=== PATIENT | male | born 1940 | race Caucasian/White ===

== ENCOUNTER → 2017-01-31 | Outpatient (CLI) | payer MEDICARE, OTHER | END | disposition home or self-care (01) | LOC: CFH 12:53 | PROVIDERS: ATTEND Psychiatry & Neurology Neurology | DX: H05.243 Constant exophthalmos, bilateral (principal); M62.89 Other specified disorders of muscle | CPT/HCPCS: 70480 ==

== ENCOUNTER 2017-12-07 06:35 | Inpatient (IN) | payer MEDICARE ==
[~2017-12-07] VITALS: Ht 182.9 cm; Wt 67.7 kg
[2017-12-07] MEDS ORDERED: DILTIAZEM 5 MG/ML, 5ML IV ONE (07:00)
[2017-12-07] MEDS ORDERED: DILTIAZEM 5 MG/ML, 5ML ONE (07:12)
[2017-12-07 07:17] LABS: BASOPHILS # (AUTO) 0.02 x10^3/uL (0-0.1); BASOPHILS % (AUTO) 0 % (0-1); EOSINOPHILS % (AUTO) 0 % (1-7); LYMPHOCYTES # (AUTO) 0.37 x10^3/uL (1-3.4); LYMPHOCYTES % (AUTO) 6 % (22-44); MD NO; MEAN CORPUSCULAR HGB CONC 33.3 g/dL (33.2-36.2); MEAN CORPUSCULAR VOLUME 98.9 fL (81-97); MEAN PLATELET VOLUME 9.6 fL (7.4-10.4); MONOCYTES # (AUTO) 0.19 x10^3/uL (0.2-0.8); MONOCYTES % (AUTO) 3 % (2-9); NEUTROPHILS # (AUTO) 5.37 x10^3/uL (1.8-6.8); NEUTROPHILS % (AUTO) 90 % (42-75); PLATELET COUNT 176 x10^3/uL (130-400); RED BLOOD COUNT 4.77 x10^6/uL (4.38-5.82); RED CELL DISTRIBUTION WIDTH 15.4 % (9.4-14.8)
[2017-12-07 07:29] LABS: ALBUMIN 3.6 g/dL (3.4-5.0); ANION GAP 12 mmol/L (5-15); CALCIUM 9.1 mg/dL (8.5-10.1); CHLORIDE 105 mmol/L (98-107)
[2017-12-07] MEDS ORDERED: CYAN50008 PO (07:29)
[2017-12-07] MEDS ORDERED: NIAC1000 PO (07:29)
[2017-12-07] MEDS ORDERED: PIOG30TA3 PO (07:29)
[2017-12-07] MEDS ORDERED: METO25TA35 PO (07:29)
[2017-12-07] MEDS ORDERED: DOXY40CP PO (07:29)
[2017-12-07] MEDS ORDERED: CHOL200074 PO (07:29)
[2017-12-07] MEDS ORDERED: RISE150T3 PO (07:29)
[2017-12-07] MEDS ORDERED: OMEG-14 PO (07:29)
[2017-12-07] MEDS ORDERED: ROSU10TA PO (07:29)
[2017-12-07] MEDS ORDERED: RIVA20TA PO (07:29)
[2017-12-07] MEDS ORDERED: DILTIAZEM 125 MG in DEXTROSE 5% 100 ML IV SCH (07:31)
[2017-12-07] MEDS ORDERED: FUROSEMIDE 40 MG/4 ML IV ONE (08:00)
[2017-12-07] MEDS ORDERED: FUROSEMIDE 40 MG/4 ML ONE (08:12)
[2017-12-07 08:27] LABS: INTERNATIONAL NORMALIZED RATIO 1.64 (0.93-1.1); PROTHROMBIN TIME 16.7 Seconds (9.6-11.5)
[2017-12-07] MEDS ORDERED: TRAM50TA2 PO (09:00)
[2017-12-07] MEDS ORDERED: POLYETHYLENE GLYCOL 17 GM PACKET PO PRN (10:30)
[2017-12-07] MEDS ORDERED: ACETAMINOPHEN 325 MG TABLET PO PRN (10:30)
[2017-12-07] MEDS ORDERED: POTASSIUM CHLORIDE 20 MEQ TAB.ER.PRT PO ONE (10:30)
[2017-12-07] MEDS: METOPROLOL TARTRATE 25 MG TABLET PO SCH ×3 (10:30→22:02)
[2017-12-07] MEDS ORDERED: ONDANSETRON 2MG/ML, 2ML IVPush PRN (10:30)
[2017-12-07] MEDS ORDERED: DEXTROSE 4 GM TAB.CHEW PO PRN (11:00)
[2017-12-07] MEDS ORDERED: GLUCAGON 1 MG IM PRN (11:00)
[2017-12-07] MEDS ORDERED: DEXTROSE 50%, 50ML SYRINGE IVPush PRN (11:00)
[2017-12-07 11:10] LABS: TROPONIN I 0.102 ng/mL (0.000-0.045)
[2017-12-07 12:47] VITALS: BP 108/72
[2017-12-07] MEDS ORDERED: DILTIAZEM 125 MG in SODIUM CHLORIDE 0.9% 100 ML IV PRN (15:00)
[2017-12-07 17:08] LABS: TROPONIN I 0.096 ng/mL (0.000-0.045)
[2017-12-07] MEDS: FUROSEMIDE 40 MG/4 ML IV SCH (17:30)
[2017-12-07] MEDS ORDERED: DILTIAZEM 30 MG TABLET ONE (17:53)
[2017-12-07] MEDS: DILTIAZEM 30 MG TABLET PO SCH (17:55)
[2017-12-07 19:25] VITALS: BP_SYST 88; BP_SYST 92; BP_DIAS 45; BP_DIAS 53; BP_DIAS 83
[2017-12-07] MEDS: SODIUM CHLORIDE FLUSH 10ML SYR IVF SCH ×2 (21:00→22:03)
[2017-12-07] MEDS ORDERED: ATORVASTATIN 20 MG TABLET PO SCH (21:00)
[2017-12-07 21:56] VITALS: BP 93/55
[2017-12-08 00:11] VITALS: BP 113/70
[2017-12-08] MEDS: DILTIAZEM 30 MG TABLET PO SCH ×3 (00:13→12:24)
[2017-12-08 04:55] VITALS: BP 109/52
[2017-12-08] MEDS: METOPROLOL TARTRATE 25 MG TABLET PO SCH ×2 (04:57→11:04)
[2017-12-08 06:05] LABS: ANION GAP 11 mmol/L (5-15); CHLORIDE 107 mmol/L (98-107)
[2017-12-08 06:07] LABS: BASOPHILS # (AUTO) 0.02 x10^3/uL (0-0.1); BASOPHILS % (AUTO) 0 % (0-1); EOSINOPHILS # (AUTO) 0.01 x10^3/uL (0-0.4); EOSINOPHILS % (AUTO) 0 % (1-7); LYMPHOCYTES # (AUTO) 0.62 x10^3/uL (1-3.4); LYMPHOCYTES % (AUTO) 11 % (22-44); MD NO; MEAN CORPUSCULAR HEMOGLOBIN 32.8 pg (27.5-34.5); MEAN CORPUSCULAR HGB CONC 33.2 g/dL (33.2-36.2); MEAN CORPUSCULAR VOLUME 98.7 fL (81-97); MEAN PLATELET VOLUME 8.8 fL (7.4-10.4); MONOCYTES # (AUTO) 0.55 x10^3/uL (0.2-0.8); MONOCYTES % (AUTO) 10 % (2-9); NEUTROPHILS # (AUTO) 4.48 x10^3/uL (1.8-6.8); NEUTROPHILS % (AUTO) 79 % (42-75); PLATELET COUNT 154 x10^3/uL (130-400); RED BLOOD COUNT 3.82 x10^6/uL (4.38-5.82); RED CELL DISTRIBUTION WIDTH 15.5 % (9.4-14.8)
[2017-12-08 06:10] VITALS: BP 106/72
[2017-12-08 06:12] LABS: ALANINE AMINOTRANSFERASE 69 U/L (12-78); ALKALINE PHOSPHATASE 99 U/L (45-117); BILIRUBIN,TOTAL 1.6 mg/dL (0.2-1.0); CALCIUM 8.9 mg/dL (8.5-10.1); CHOL/HDL RATIO 1.7; CHOLESTEROL, TOTAL 90 mg/dL (140-239); CREATININE 1.02 mg/dL (0.7-1.3); HDL CHOL % 58 % (26-37); HDL CHOLESTEROL (DIRECT) 52 mg/dL (40-60); LDL CHOLESTEROL,CALCULATED 20 mg/dL (54-169); LDL/HDL RATIO 0.4 (0.5-3.0); TOTAL PROTEIN 5.9 g/dL (6.4-8.2); TRIGLYCERIDES 88 mg/dL (50-200); VLDL CHOLESTEROL 18 mg/dL (0-25)
[2017-12-08 06:44] VITALS: BP 100/64
[2017-12-08] MEDS: FUROSEMIDE 40 MG/4 ML IV SCH (08:57)
[2017-12-08] MEDS: SODIUM CHLORIDE FLUSH 10ML SYR IVF SCH ×2 (08:57→09:00)
[2017-12-08] MEDS ORDERED: PIOGLITAZONE 15 MG TABLET PO SCH (09:00)
[2017-12-08] MEDS ORDERED: RIVAROXABAN 20 MG TABLET PO SCH (09:00)
[2017-12-08] MEDS ORDERED: NIACIN 500 MG TABLET.ER PO SCH (09:00)
[2017-12-08] MEDS ORDERED: CYANOCOBALAMIN 1,000 MCG TABLET PO SCH (09:00)
[2017-12-08] MEDS ORDERED: CHOLECALCIFEROL 1,000 UNIT TABLET PO SCH (09:00)
[2017-12-08] MEDS ORDERED: OMEGA-3/FISH OIL CAPSULE PO SCH (09:00)
[2017-12-08 12:31] VITALS: BP 107/66
[2017-12-25] MEDS ORDERED: RISEDRONATE 30 MG PO SCH ×2 (09:00)
== END 2017-12-08 16:07 | disposition home or self-care (01) | DRG 291 ==
LOC: ED 07:15 → EDIP 08:03 → 5SO 12:42
PROVIDERS: ADMIT Hospitalist; ATTEND Hospitalist
DX: I11.0 Hypertensive heart disease with heart failure (principal); J96.00 Acute respiratory failure, unspecified whether with hypoxia or hypercapnia; D68.69 Other thrombophilia; I24.8 Other forms of acute ischemic heart disease; I48.1 Persistent atrial fibrillation; I50.21 Acute systolic (congestive) heart failure; I48.2 Chronic atrial fibrillation; E11.9 Type 2 diabetes mellitus without complications; E78.5 Hyperlipidemia, unspecified; Z79.01 Long term (current) use of anticoagulants
CPT/HCPCS: 36415; 71045; 80048; 80053; 80061; 82040; 83735; 83880; 84100; 84484; 85025; 85610; 85730; 93005; 93306; J1940

== ENCOUNTER 2021-06-14 15:05 | Emergency (ER) | payer MEDICARE ==
[~2021-06-14] VITALS: Ht 180.3 cm; Wt 72.9 kg
[~2021-06-14 15:05] MED LIST: CHOL200074 PO; CYAN50009 PO; DOXY40CP PO; METO25TA35 PO; NIAC1000 PO; OMEG-14 PO; PIOG30TA67 PO; RISE150T3 PO; RIVA20TA PO; ROSU10TA2 PO; TRAM50TA2 PO
[2021-06-14 15:46] VITALS: BP 146/65
[2021-06-14] MEDS ORDERED: DIPH,PERTUSS(ACELL),TET VAC/PF 0.5 ML IM-VACC ONE ×2 (16:00→16:16)
--- NOTE | 2021-06-14 16:03 | NUR ---
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
[2021-06-14] MEDS ORDERED: BACITRACIN ZINC OINT 500U/GM, 0.9 GM ONE (16:16)
--- NOTE | 2021-06-14 16:40 | NUR ---
Patient/Caregiver given discharge instructions and they have confirmed that they understand the instructions. Patient ambulatory with steady gait. NAD, all questions answered appropriately, denies additional needs at this time. No personal belongings left in room after discharge.
== END 2021-06-14 16:42 | disposition home or self-care (01) ==
LOC: ED 16:30
DX: S51.811A Laceration without foreign body of right forearm, initial encounter (principal); I48.91 Unspecified atrial fibrillation; X58.XXXA Exposure to other specified factors, initial encounter; Y93.89 Activity, other specified; Y92.009 Unspecified place in unspecified non-institutional (private) residence as the place of occurrence of the external cause; Y99.8 Other external cause status
CPT/HCPCS: 90471; 90715; 99283